=== PATIENT | female | born 1980 | race Caucasian/White ===

== ENCOUNTER 2018-01-05 08:11 | Emergency (ER) | payer BC ==
[~2018-01-05] VITALS: Ht 160 cm; Wt 54.4 kg
[2018-01-05] MEDS ORDERED: CEFDINIR300 MG PO (08:35)
[2018-01-05] MEDS ORDERED: LEXAPRO 10 MG T10 MG PO (08:36)
[2018-01-05 08:55] LABS: URINE BILIRUBIN NEGATIVE (Negative); URINE BLOOD 3+ (Negative); URINE CLARITY CLEAR; URINE COLOR YELLOW; URINE GLUCOSE-RANDOM NEGATIVE (Negative); URINE KETONES NEGATIVE (Negative); URINE LEUKOCYTES-REFLEX NEGATIVE (Negative); URINE NITRITE-REFLEX NEGATIVE (Negative); URINE PROTEIN NEGATIVE (Negative); URINE SPECIFIC GRAVITY <= 1.005 (1.005-1.030); URINE UROBILINOGEN 0.2 E.U./dl (0.2-1.0)
[2018-01-05 09:10] LABS: CASTS None Seen /LPF (None Seen); CRYSTALS None Seen /LPF (None Seen); SQUAMOUS 4-10 Moderate /LPF (0-3)
[2018-01-05 09:11] LABS: BACTERIA-REFLEX 1-9 Few /HPF (None Seen); URINE RBC 3-10 Few /HPF (0-2); URINE WBC-REFLEX None Seen /HPF (0-5)
[2018-01-05] MEDS ORDERED: NAPROSYN500 MG PO (12:21)
[2018-01-05] MEDS ORDERED: CYCLOBENZAPRINE5 MG PO (12:21)
[2018-01-05 12:40] VITALS: BP 109/70
== END 2018-01-05 12:41 | disposition home or self-care (01) ==
LOC: M.ERS 08:11
PROVIDERS: Personal Emergency Response Attendant
DX: N30.90 Cystitis, unspecified without hematuria (principal); F32.9 Major depressive disorder, single episode, unspecified; G89.29 Other chronic pain; M54.2 Cervicalgia; F17.210 Nicotine dependence, cigarettes, uncomplicated